=== PATIENT | female | born 1945 | race Caucasian/White ===

== ENCOUNTER 2018-01-07 08:29 | Observation (INO) | payer MEDICARE, OTHER ==
[2018-01-07 09:07] LABS: #Lymphocytes 1.2 thou/uL (1.20-3.40); #Monocytes 0.2 thou/uL (0.11-0.59); #Neutrophils 1.7 thou/uL (1.40-6.50); %Basophils 0.4 % (0.0-1.0); %Eosinophils 1.4 % (0.0-10.0); %Lymphocytes 36.5 % (21.0-51.0); %Monocytes 7.7 % (0.0-10.0); %Neutrophils 54.1 % (42.0-75.0); Hemoglobin 13.9 g/dL (12.0-16.0); Mean Corpuscular HGB CONC 32.7 g/dL (32.0-36.0); Mean Corpuscular Hemoglobin 27.9 pg (27.0-31.0); Mean Corpuscular Volume 85.4 fL (78.0-98.0); Mean Platelet Volume 8.2 fL (7.4-10.4); Platelet Count 190 thou/uL (130-400); Red Blood Cell (RBC) Count 4.99 mill/uL (4.20-5.40); White Blood Cell (WBC) Count 3.2 thou/uL (4.8-10.8)
[2018-01-07 09:29] LABS: ALT (SGPT) 26 U/L (8-55); AST (SGOT) 27 U/L (5-34); Albumin 4.2 g/dL (3.4-4.8); Alkaline Phosphatase 73 U/L (40-150); Anion Gap 12 mmol/L (10-20); BUN (Urea Nitrogen) 7 mg/dL (9.8-20.1); Bilirubin, Total 0.5 mg/dL (0.2-1.2); CK (CPK) 107 U/L (29-168); Calc. Creatinine Clearance 0 mL/min (70-130); Calcium 9.1 mg/dL (7.8-10.44); Carbon Dioxide 25 mmol/L (23-31); Chloride 107 mmol/L (98-107); Estimated GFR-MDRD 63; Globulin 2.9 g/dL (2.4-3.5); Glucose 134 mg/dL (83-110); Potassium 3.2 mmol/L (3.5-5.1); Protein, Total 7.1 g/dL (6.0-8.3); Sodium 141 mmol/L (136-145)
[2018-01-07 09:33] LABS: CKMB 2.3 ng/mL (0-6.6); Troponin I Less than 0.010 ng/mL (< 0.028)
[2018-01-07] MEDS ORDERED: Potassium Chloride 20 MEQ TAB ONE (09:45)
[2018-01-07] MEDS ORDERED: Enoxaparin Sodium 80 MG/0.8 ML SYRINGE ONE (09:50)
--- NOTE | 2018-01-07 11:23 | RAD ---
CHEST 1 VIEW: HISTORY: Atrial flutter. Chest pain. COMPARISON: Radiograph of 04/02/2015. FINDINGS: Heart size is mildly enlarged. Multiple midline median sternotomy wires. No pneumothorax or effusion. Mild S-shaped scoliosis of thoracolumbar spine. IMPRESSION: No significant change. Chronic findings. POS: ZEYAD
[2018-01-07] MEDS ORDERED: Senokot S 8.6-50 MG TAB PO PRN (11:48)
[2018-01-07] MEDS ORDERED: Acetaminophen 325 MG TAB PO PRN (11:48)
[2018-01-07] MEDS ORDERED: HYDROcodone/Acetaminophen 5/325 mg Tablet PO PRN (11:49)
[2018-01-07] MEDS ORDERED: Potassium Chloride 20 MEQ TAB PO SCH (12:00)
[2018-01-07 13:20] LABS: Troponin I 0.024 ng/mL (< 0.028)
--- NOTE | 2018-01-07 14:14 | HP ---
CHIEF COMPLAINT: Palpitations. HISTORY OF PRESENT ILLNESS: Patient is a very pleasant 72-year-old female with past medical history of hypertension, hyperlipidemia and hypothyroidism, who presents to the hospital with complaints of p alpitations x1 day. The patient stated that she woke up this morning around 3:30 a.m., felt very anx ious at this time. She watched some TV, walked around and kind of drifted off to sleep. The patient stated that she woke up, felt her heart was beating very, very fast, which concerned her, so she cam e into the ER for further evaluation. The patient states that she has had a little run of atrial fib rillation and her securities and real estate director, Dr. Oh has told her that if this happens again to come into the ER for further evaluation. Patient by the EMS, was given 70.5 mg of Cardizem which decreased her he art rate from 140-110. The patient normally takes 2 baby aspirins a day. She denies any chest pain or chest tightness. However, she states that her when she had her bypasses done, she did not have ch est pain, but she had jaw pain which she did have some off it while she was in EMS. Currently, she d enies any jaw pain or chest pain or shortness of breath. PAST MEDICAL HISTORY: 1. As I mentioned earlier, she has a history of hypertension. 2. Hyperlipidemia. 3. Hypothyroidism. 4. Coronary artery disease. PAST SURGICAL HISTORY: She has had a bypass x2. Also, has a history of tonsillectomy and cataract s urgeries. SOCIAL HISTORY: She denies any alcohol use, drug use or smoking. ALLERGIES: She is allergic to SORBITOL and LATEX. MEDICATIONS: As of the following; she takes 81 mg aspirins daily. She takes 12.5 mg of Toprol-XL da kiran. She takes 50 mcg of levothyroxine daily and 10 mg of rosuvastatin daily. FAMILY HISTORY: Father had bypass at the age of 60. She does have a history of early heart disease in her family. REVIEW OF SYSTEMS: All negative except for the ones mentioned above in the HPI. PHYSICAL EXAMINATION: VITAL SIGNS: As of the following, her temperature is 98.1, heart rate is 51, oxygen is 90% on room a ir, blood pressure is 144/64. GENERAL: She is awake, alert, oriented x3, does not appear in distress. CARDIOVASCULAR: S1, S2 present, regular. No murmurs heard. LUNGS: Clear to auscultation. No rhonchi or wheezes noted. ABDOMEN: Soft, nontender. Bowel sounds are present x2. EXTREMITIES: No edema. Pedal pulses are present x2. NEUROLOGIC: Neurological arango, no focal deficits noted. SKIN: No cuts, bruises or lesions noted. LABORATORY DATA AND IMAGING DATA: Laboratory results are as of the following: WBC of 3.2, hemoglobi n of 13.9, hematocrit 42.6, platelets of 190. Chemistry: Sodium 141, potassium of 3.2, BUN of 7, cr eatinine 0.88. Troponin x2 were negative. TSH was 2.26. Her EKG just indicated initially atrial fi brillation. Second one indicated sinus rhythm. She did have a chest x-ray which indicated no signif icant changes. ASSESSMENT AND PLAN: The patient is a very pleasant 72-year-old female who presents to the hospital with complaints of some palpitations. 1. Atrial fibrillation with rapid ventricular response. We will admit the patient to do tele. We w ill consult Cardiology. Patient takes only 2 baby aspirins a day. Based on the CHADS-VASc score, he r CHADS-VASc score is 372. She is a female and she has a history of hypertension. We will start the patient on Lovenox for now. I did speak to her about possibly switching it over to Eliquis or Xarel to. We will also order echocardiogram and continue to monitor. 2. Hypertension. We continue her home medications. 3. Hypothyroidism. We will continue her home medications. 4. Deep venous thrombosis prophylaxis. The patient is already on Lovenox. We will continue that.
[2018-01-07 14:56] VITALS: BMI 24.3
[2018-01-07 15:28] LABS: Troponin I 0.031 ng/mL (< 0.028)
[2018-01-07] MEDS: Dronedarone HCl 400 MG TAB PO SCH (18:33)
--- NOTE | 2018-01-07 19:44 | CON ---
DATE OF CONSULTATION: 01/07/2018 INDICATION FOR CONSULTATION: A 72-year-old female with an episode of atrial fibrillation. HISTORY OF PRESENT ILLNESS: This is a very pleasant 72-year-old female who has had bypass surgery in the past in 2003 and then repeat bypass surgery in 2014. She has had a history of one episode of at rial fibrillation in the past and was told that should she have further episode, she should present t o the emergency room. She did not feel well yesterday evening and then noticed that she had felt wor se and asked her daughter to take to the emergency room. 911 was called and she was found to have at rial fibrillation with rapid ventricular response. She was given IV diltiazem and converted back to sinus rhythm. Actually, she did not convert right away. When she arrived in the emergency room, the EKG still showed atrial fibrillation with a well-controlled ventricular response and what appeared t o be an incomplete right bundle branch block. At this time, she has since converted back to sinus rh ythm, but continues to have an incomplete right bundle branch block. She did not have any chest pain or shortness of breath. She did complain of some jaw discomfort, which she has had in the past prio r to undergoing her repeat bypass surgery. At this time, she is very comfortable and denies any comp laints. Her cardiac enzymes are negative for any evidence of myocardial infarction. PAST MEDICAL HISTORY: Significant for the bypass surgery in 2003 with a RASCON to the left anterior de scending artery and saphenous vein graft, I believe, to the distal right coronary artery. At the ellen e of the repeat bypass surgery or cardiac catheterization in 2014, she had an occlusion on both the L MEGHANN as well as the right coronary artery graft. There was some filling of the distal right coronary retrograde from the left system. Redo bypass surgery in 2015 was with a saphenous vein graft to the left anterior descending artery and also to the obtuse marginal branch of the left circumflex. These are very small vessels apparently, 2 to 2.25 mm in diameter. PAST SURGICAL HISTORY: She has had a tonsillectomy, cataract surgery. She has had dental implants. SOCIAL HISTORY: She has children who are alive and well. There is no alcohol or tobacco abuse. FAMILY HISTORY: Positive for coronary artery disease. MEDICATIONS PRIOR TO ADMISSION: Included CoQ10, levothyroxine, aspirin, Crestor, and Toprol-XL. ALLERGIES: She is allergic to SORBITOL and LATEX. REVIEW OF SYSTEMS: Twelve-point review of systems, she complains of some leg cramps and actually the Crestor had been decreased due to the lower extremity cramping. Otherwise, 12-point review of syste ms is unremarkable. PHYSICAL EXAMINATION: GENERAL: Reveals a very pleasant, well-developed, well-nourished female who is in no acute distress. VITAL SIGNS: Blood pressure is 118/69, earlier was 144/64; heart rate is in the 40s-50s and shows a sinus rhythm with an incomplete right bundle branch block; temperature is afebrile; O2 saturation is 98%. HEENT: Shows the head to be normocephalic and atraumatic. NECK: Carotid pulses are present. There were no bruits. There is no JVD. The thyroid is not enlar ged. I cannot palpate the thyroid. CHEST: Clear to auscultation without rales, rhonchi, or wheezing. CARDIOVASCULAR: Reveals a regular rhythm at this time, somewhat bradycardiac. She does have a very soft systolic murmur of the aortic area. Otherwise, I did not hear any significant rubs or bruits. I did not feel a heave. ABDOMEN: Soft and nontender. She does have a well-healed midline surgical incision of the chest are a after previous bypass surgery. EXTREMITIES: Showed no clubbing, cyanosis, or edema. Pedal pulses are present. NEUROLOGIC: She appears to be fully intact with normal strength and normal tone. SKIN: Warm and dry. At this time, her EKG shows a normal sinus rhythm with incomplete right bundle branch block, sinus br adycardia. Earlier, the EKG did indicate atrial fibrillation. IMPRESSION: 1. Recent onset of a second episode of atrial fibrillation with a rapid ventricular response, which was well controlled by giving IV diltiazem. This is the second episode for the patient and most like ly she will need to undergo an echocardiogram. She does not remember the last time she had an echoca rdiogram. This will be for evaluation of the left ventricular systolic function as well as the left atrial size. We would suggest that she start on oral anticoagulation as well as Lovenox. I would ag ree with Lovenox at this time. She will also need to undergo stress testing if she has not had a rec ent stress test to rule out evidence for underlying ischemia as a possible etiology of the atrial fib rillation and she did have some jaw discomfort associated with the atrial fibrillation, but she did h ave a rapid ventricular response. It may be advantageous to start the patient on Multaq to see [facility] er or not she will maintain sinus rhythm. 2. History of coronary artery disease. This appears to be relatively stable, but again will need to undergo some type of stress testing to rule out evidence for underlying ischemia as a possible etiol ogy of the atrial fibrillation. 3. Hypertension. This is under good control with her present medications. We would continue this. 4. History of hypercholesterolemia. We would continue her medications with Crestor. We would be mo re than happy to continue to follow the patient with you. Dr. Oh will see the patient on Monda y unless she is discharged tomorrow if she remains stable. She could be discharged to home and could follow up as an outpatient, but we will first need to evaluate the echocardiogram. She could have s tress testing as an outpatient and we could medically follow her for the atrial fibrillation also.
[2018-01-07] MEDS: Enoxaparin Sodium 80 MG/0.8 ML SYRINGE SC SCH (20:50)
[2018-01-07] MEDS: Levothyroxine Sodium 50 MCG TAB PO SCH (20:51)
[2018-01-07] MEDS: Famotidine 20 MG TAB PO SCH (20:51)
[2018-01-07] MEDS: Rosuvastatin 10 MG TAB PO SCH (20:52)
[2018-01-08 07:32] LABS: #Eosinphils 0.1 thou/uL (0.0-0.7); #Lymphocytes 1.6 thou/uL (1.20-3.40); #Monocytes 0.3 thou/uL (0.11-0.59); #Neutrophils 1.4 thou/uL (1.40-6.50); %Basophils 0.8 % (0.0-1.0); %Eosinophils 1.5 % (0.0-10.0); %Lymphocytes 47.9 % (21.0-51.0); %Monocytes 8.7 % (0.0-10.0); %Neutrophils 41.1 % (42.0-75.0); Hemoglobin 12.1 g/dL (12.0-16.0); Mean Corpuscular HGB CONC 32.7 g/dL (32.0-36.0); Mean Corpuscular Hemoglobin 27.7 pg (27.0-31.0); Mean Corpuscular Volume 84.8 fL (78.0-98.0); Mean Platelet Volume 8.4 fL (7.4-10.4); Platelet Count 175 thou/uL (130-400); Red Blood Cell (RBC) Count 4.37 mill/uL (4.20-5.40); White Blood Cell (WBC) Count 3.3 thou/uL (4.8-10.8)
[2018-01-08 08:04] LABS: Anion Gap 10 mmol/L (10-20); BUN (Urea Nitrogen) 8 mg/dL (9.8-20.1); Calc. Creatinine Clearance 66 mL/min (70-130); Calcium 8.8 mg/dL (7.8-10.44); Carbon Dioxide 25 mmol/L (23-31); Chloride 108 mmol/L (98-107); Estimated GFR-MDRD 68; Glucose 82 mg/dL (83-110); Potassium 3.8 mmol/L (3.5-5.1); Sodium 139 mmol/L (136-145)
[2018-01-08] MEDS: Dronedarone HCl 400 MG TAB PO SCH ×2 (10:08→19:02)
[2018-01-08] MEDS: Aspirin 81 mg Enteric Coated Tablet PO SCH (10:08)
[2018-01-08] MEDS: Famotidine 20 MG TAB PO SCH ×2 (10:08→21:41)
[2018-01-08] MEDS: Enoxaparin Sodium 80 MG/0.8 ML SYRINGE SC SCH ×2 (10:10→21:40)
--- NOTE | 2018-01-08 11:25 | PDOC.CTH ---
<Delia Bunch - Last Filed: 01/08/18 14:49> Cardiology Progress Note - Subjective Stress test as outpt. - Objective Vital Signs Temp Pulse Resp BP Pulse Ox 01/08/18 07:40 97.6 F 46 L 18 132/64 97 01/08/18 04:55 98.2 F 56 L 16 112/54 L 95 01/08/18 00:05 98.0 F 55 L 16 118/57 L 96 Weight 151 lb 01/07/18 01/08/18 01/09/18 06:59 06:59 06:59 Intake Total 730 Output Total 900 Balance -170 - Physical Examination General/Neuro: alert & oriented x3 Neck: no JVD present Lungs: CTA Heart: RRR Abdomen: soft Extremities: other: (No edema) - Telemetry Telemetry Rhythm: SB 45-50s - Labs Result Diagrams: 01/08/18 06:37 01/08/18 06:37 Troponin/CKMB CK-MB (CK-2) 2.3 ng/mL (0-6.6) 01/07/18 08:53 Troponin I 0.031 ng/mL (< 0.028) H 01/07/18 14:50 - Assessment/Plan 1. New-on set Afib - converted back to SR with Cardizem. On Multaq and Metoprolol, which was decreased from 25mg to 12.5mg qd. Echo was taking this AM and the result is pending at this moment. Stress test as outpt. 2. CAD with Hx of CABG in 2003 and 2014 - stable; on BBlocker, Crestor, and ASA 3. HTN - stable 4. Hyperlipidemia - on Statin MAR reviewed * Stress test as outpt. <Addendum> * Hold Metoprolol until her HR >50 sustains and/or seen by Dr Oh tomorrow. Review of Systems - Review of Systems Constitutional: reports: no symptoms reported EENTM: reports: no symptoms reported Respiratory: reports: no symptoms reported Cardiac (ROS): reports: no symptoms reported ABD/GI: reports: no symptoms reported : reports: no symptoms reported Musculoskeletal: reports: no symptoms reported <Chester Vegas - Last Filed: 01/08/18 22:25> Cardiology Progress Note - Objective Vital Signs Temp Pulse Resp BP BP Pulse Ox 01/08/18 20:00 97.5 F L 48 L 16 149/67 H 98 01/08/18 15:46 97.5 F L 51 L 16 136/73 97 01/08/18 11:17 98.3 F 48 L 16 117/59 L 95 Weight 151 lb 01/07/18 01/08/18 01/09/18 06:59 06:59 06:59 Intake Total 730 350 Output Total 900 400 Balance -170 -50 - Labs Result Diagrams: 01/08/18 06:37 01/08/18 06:37 Troponin/CKMB CK-MB (CK-2) 2.3 ng/mL (0-6.6) 01/07/18 08:53 Troponin I 0.031 ng/mL (< 0.028) H 01/07/18 14:50 - Assessment/Plan Pt.seen and eval.by me.I agreewith the A/P by the [employer]. Chest clear.RRR.
--- NOTE | 2018-01-08 16:55 | PDOC.PN ---
- Subjective Encounter Start Date: 01/08/18 (f/u a fib) Encounter Start Time: 16:53 Subjective: pt without complaints, reports she walked without difficulty -: denies any chest pain, difficulty breathing, lightheadedness - Objective Resuscitation Status: Resuscitation Status FULL:Full Resuscitation Vital Signs & Weight: Vital Signs (12 hours) Temp Pulse Resp BP Pulse Ox 01/08/18 15:46 97.5 F L 51 L 16 136/73 97 01/08/18 11:17 98.3 F 48 L 16 117/59 L 95 01/08/18 07:40 97.6 F 46 L 18 132/64 97 01/08/18 04:55 98.2 F 56 L 16 112/54 L 95 Weight Weight 151 lb I&O: 01/07/18 01/08/18 01/09/18 06:59 06:59 06:59 Intake Total 730 Output Total 900 Balance -170 Result Diagrams: 01/08/18 06:37 01/08/18 06:37 EKG Reviewed by me: Yes (tele -= sinus 40's-50's) Phys Exam - Physical Examination Constitutional: NAD Respiratory: no wheezing, no rales, no rhonchi, clear to auscultation bilateral Cardiovascular: RRR, no significant murmur Gastrointestinal: soft, non-tender, no distention, positive bowel sounds Musculoskeletal: no edema, pulses present Neurological: non-focal, moves all 4 limbs Psychiatric: normal affect Skin: no rash Dx/Plan (1) Paroxysmal atrial fibrillation Code(s): I48.0 - PAROXYSMAL ATRIAL FIBRILLATION Status: Acute (2) Sinus bradycardia Code(s): R00.1 - BRADYCARDIA, UNSPECIFIED Status: Chronic (3) Dyslipidemia Code(s): E78.5 - HYPERLIPIDEMIA, UNSPECIFIED Status: Chronic (4) Hypothyroidism Code(s): E03.9 - HYPOTHYROIDISM, UNSPECIFIED Status: Chronic Qualifiers: Hypothyroidism type: unspecified Qualified Code(s): E03.9 - Hypothyroidism , unspecified - Plan * Appreciate cardiology consult * pt started on multaq * hold toprol - await Dr. Adriano brumfield tomorrow * on full dose lovenox - will need transition to oral medication * on low dose aspirin * continue home meds of statin, levothyroxine. * * dvt prophy - fully anticoagulated * gi prophy - not indicated, taking PO * code status - full * * reviewed plan of care with patient, , no questions or further needs at end of eval * pt remains at high risk in current condition *
[2018-01-08] MEDS: Levothyroxine Sodium 50 MCG TAB PO SCH (21:40)
[2018-01-08] MEDS: Rosuvastatin 10 MG TAB PO SCH (21:40)
[2018-01-09] MEDS: Famotidine 20 MG TAB PO SCH (08:44)
[2018-01-09] MEDS: Dronedarone HCl 400 MG TAB PO SCH (08:44)
[2018-01-09] MEDS: Aspirin 81 mg Enteric Coated Tablet PO SCH (08:46)
[2018-01-09] MEDS: Enoxaparin Sodium 80 MG/0.8 ML SYRINGE SC SCH (08:46)
[2018-01-09 12:23] VITALS: BP 121/66; TEMP 97.9
--- NOTE | 2018-01-09 13:09 | DIS ---
DATE OF ADMISSION: 01/08/2018 DATE OF DISCHARGE: 01/09/2018 PRIMARY CARE PHYSICIAN: Thor Rosario M.D. PRIMARY USED CAR RENOVATOR: Alirio Oh M.D. DISCHARGE DIAGNOSES: 1. New onset paroxysmal atrial fibrillation. 2. History of coronary artery disease. 3. Status post coronary artery bypass grafting. 4. Sinus bradycardia. 5. Hyperlipidemia. 6. Hypothyroidism. CONSULTATIONS: Cardiology, Dr. Fab Vegas. PROCEDURES: None. HISTORY AND PHYSICAL: Ms. Green is a 72-year-old female with a known history of coronary artery disea se followed by Dr. Oh, who presented to the emergency department for evaluation on the day of a dmission with chief complaint of palpitations. Workup in the ER showed normal cardiac enzymes and fo r the patient to be in atrial fibrillation, which was a new finding. We were subsequently called for admission. HOSPITAL COURSE: The patient was seen and examined by Dr. Bashir, placed in an observation. Cardiol rajiv was consulted. Serial cardiac biomarkers were obtained and patient was monitored. Overnight 01/08/2018 to 01/09/2018, patient converted back to sinus rhythm on a Cardizem-CD. She was seen by Cardiology and transitioned to Multaq 400 b.i.d. She was continued on aspirin and Lovenox i nitially and the discussion on Suraj Serranorelto to be left up to Dr. Oh when she sees him as an outpatient in a week or so. The patient was doing well in the morning. She was back in sinus rhythm. Even on her beta fahad, her heart rate remained in the high 50s to low 60s. She is asymptomatic and stable for discharge wit h outpatient followup. PHYSICAL EXAMINATION: The patient was seen and examined on the day of discharge. Discharge plan and disposition was discussed with the patient [id number] at the bedside. DISCHARGE MEDICATIONS: NEW MEDICATIONS: Multaq 400 mg p.o. b.i.d. Prescription sent. HOME MEDICINES: To continue. Please see discharge medication reconciliation sheet. FOLLOWUP APPOINTMENTS: 1. Primary care physician in [address] Oh in 1-2 weeks. DISCHARGE CONDITION: Stable. DISPOSITION: Discharged home via private vehicle. DISCHARGE ACTIVITY: Per cardiopulmonary limits. DISCHARGE DIET: Heart healthy recommended.
== END 2018-01-09 13:15 | disposition home or self-care (01) ==
LOC: ERS 08:29 → 2SW 11:46
PROVIDERS: ADMIT Internal Medicine; ATTEND Internal Medicine
DX: I48.0 Paroxysmal atrial fibrillation (principal); I25.10 Atherosclerotic heart disease of native coronary artery without angina pectoris; E78.5 Hyperlipidemia, unspecified; E03.9 Hypothyroidism, unspecified; I10 Essential (primary) hypertension; E78.00 Pure hypercholesterolemia, unspecified; Z79.82 Long term (current) use of aspirin; Z79.899 Other long term (current) drug therapy; Z88.8 Allergy status to other drugs, medicaments and biological substances; Z91.040 Latex allergy status; Z91.048 Other nonmedicinal substance allergy status; Z95.1 Presence of aortocoronary bypass graft
CPT/HCPCS: 71045; 80048; 82550; 82553; 84484 ×2; 85025; 93005; 93306; 94760; 96372 ×4; 99285; G0378 ×2; 36415; 80053; 84443; J1650

== ENCOUNTER 2018-01-29 23:35 | Observation (INO) | payer MEDICARE ==
[2018-01-30 00:14] LABS: #Lymphocytes 1.6 thou/uL (1.20-3.40); #Monocytes 0.4 thou/uL (0.11-0.59); #Neutrophils 3.2 thou/uL (1.40-6.50); %Basophils 0.1 % (0.0-1.0); %Eosinophils 0.7 % (0.0-10.0); %Monocytes 8.4 % (0.0-10.0); %Neutrophils 60.7 % (42.0-75.0); Hemoglobin 14.6 g/dL (12.0-16.0); Mean Corpuscular HGB CONC 33.2 g/dL (32.0-36.0); Mean Corpuscular Hemoglobin 28.1 pg (27.0-31.0); Mean Corpuscular Volume 84.6 fL (78.0-98.0); Platelet Count 226 thou/uL (130-400); RBC Distribution Width 12.1 % (11.5-14.5); White Blood Cell (WBC) Count 5.3 thou/uL (4.8-10.8)
[2018-01-30 00:21] LABS: INR-International Normal Ratio 1.1; Prothrombin Time 14.5 SEC (12.0-14.7)
[2018-01-30] MEDS ORDERED: Nitroglycerin 2% Ointment 1 INCH/1 GM Packet ONE (00:39)
[2018-01-30 00:40] LABS: ALT (SGPT) 27 U/L (8-55); AST (SGOT) 25 U/L (5-34); Albumin 4.6 g/dL (3.4-4.8); Alkaline Phosphatase 80 U/L (40-150); Anion Gap 16 mmol/L (10-20); BUN (Urea Nitrogen) 9 mg/dL (9.8-20.1); Bilirubin, Total 0.4 mg/dL (0.2-1.2); CK (CPK) 78 U/L (29-168); Calc. Creatinine Clearance 0 mL/min (70-130); Calcium 9.9 mg/dL (7.8-10.44); Carbon Dioxide 25 mmol/L (23-31); Chloride 103 mmol/L (98-107); Estimated GFR-MDRD 59; Globulin 3.1 g/dL (2.4-3.5); Glucose 105 mg/dL (83-110); Lipase 37 U/L (8-78); Potassium 3.6 mmol/L (3.5-5.1); Protein, Total 7.7 g/dL (6.0-8.3); Sodium 140 mmol/L (136-145)
[2018-01-30 01:01] LABS: CKMB 1.6 ng/mL (0-6.6)
[2018-01-30 03:29] LABS: Troponin I 0.089 ng/mL (< 0.028)
[2018-01-30 04:15] VITALS: BMI 23.9
[2018-01-30] MEDS ORDERED: Ondansetron ODT 4 MG TAB PO PRN (04:57)
[2018-01-30] MEDS ORDERED: Ondansetron PF 4 MG/2 ML Vial IVP PRN (04:57)
[2018-01-30] MEDS ORDERED: Guaifenesin DM 100-10/5 ML UDCUP PO PRN (04:57)
[2018-01-30] MEDS ORDERED: Zolpidem Tartrate 5 MG TAB PO PRN (04:57)
[2018-01-30] MEDS ORDERED: Calcium Carbonate 500 MG ChewTAB PO PRN (04:57)
[2018-01-30] MEDS ORDERED: Nitroglycerin 0.4 MG TAB (25 Tab Bottle) PO PRN (04:57)
[2018-01-30] MEDS ORDERED: Acetaminophen 650 MG Suppository PR PRN (04:57)
[2018-01-30] MEDS: Levothyroxine Sodium 50 MCG TAB PO SCH (06:09)
[2018-01-30] MEDS: Nitroglycerin 2% Ointment 1 INCH/1 GM Packet TOP SCH ×3 (06:10→20:47)
[2018-01-30 06:50] LABS: Troponin I 0.129 ng/mL (< 0.028)
--- NOTE | 2018-01-30 07:34 | RAD ---
CHEST 1 VIEW: HISTORY: Chest pain. COMPARISON: Radiograph 01/07/2018. FINDINGS: Lungs are clear but hyperinflated. Heart size is mildly enlarged. No pneumothorax. No effusion. C hronic interstitial markings in the lung bases. There is a what appears to be a wedge compression fracture of the upper lumbar spine incompletely mesha luated on this examination. IMPRESSION: Possibly a new compression deformity of the upper lumbar spine incompletely evaluated on this examina tion. Dedicated lumbar spine radiographs recommended. POS: JORDAN
[2018-01-30] MEDS ORDERED: Apixaban 5 MG TAB PO SCH (09:00)
[2018-01-30] MEDS ORDERED: Famotidine/PF 20 mg/2ml Vial SLOW IVP SCH (09:00)
[2018-01-30] MEDS ORDERED: Aspirin 81 mg Enteric Coated Tablet PO SCH (09:00)
[2018-01-30] MEDS: Acetaminophen 325 MG TAB PO PRN ×2 (10:24→19:23)
[2018-01-30] MEDS: Famotidine 20 MG TAB PO SCH ×2 (10:24→20:44)
[2018-01-30] MEDS: Ubidecarenone 50 MG CAP PO SCH (10:25)
[2018-01-30] MEDS: Amiodarone 200 MG TAB PO SCH ×2 (10:26→20:44)
[2018-01-30] MEDS: Rosuvastatin 10 MG TAB PO SCH (10:26)
[2018-01-30 11:27] LABS: Troponin I 0.109 ng/mL (< 0.028)
[2018-01-30 17:27] LABS: Troponin I 0.061 ng/mL (< 0.028)
--- NOTE | 2018-01-31 00:15 | HP ---
CHIEF COMPLAINT: Ongoing chest discomfort and pain that is radiating to the left arm and the ears. HISTORY OF PRESENTING ILLNESS: 72 year old female presented to hospital 2 weeks ago with new onset Afib, she was then treated with Multaq and she converted to SR. Multaq subsequently changed to Amiodarone due to allergic reaction to Multaq. The patient is now is presenting with chest discomfort radiating to the left side of her arms and also the neck. The patient does not complain of any nausea, vomiting, or headache. On arrival in the ER, the patient's blood pressure was high and was treated with nitro patch. PAST MEDICAL HISTORY: Significant for coronary artery disease and CABG x2. New diagnosis of atrial fibrillation, history of hypothyroidism, history of hyperlipidemia, and hypertension. PAST SURGICAL HISTORY: Dental implant, bilateral cataract surgery with lens implant. Surgical history significant for CABG x2. Surgical history significant for tonsillectomy. PSYCHIATRIC HISTORY: No previous psychiatric history. SOCIAL HISTORY: The patient drinks socially. Denies any drug or alcohol or smoking. REVIEW OF SYMPTOMS: CONSTITUTIONAL: Negative for any chills or fever. HEENT: Negative for any headache or syncope, no complaints of any eye pain or discharge, no complaints of any ear pain or discharge, no complaints of sore throat. CARDIOVASCULAR: Please see HPI. RESPIRATORY: Negative for any history of shortness of breath or cough. GI: Negative for any complaints of nausea, vomiting, diarrhea, or constipation. MUSCULOSKELETAL: Denies any swelling or pain in the lower extremities. SKIN: Denies any rashes or redness. NEUROLOGIC: Denies any neurological deficits or complaints. PHYSICAL EXAMINATION: VITAL SIGNS: Blood pressure 138/74, pulse 60, respiratory rate 18, O2 saturation around 97% on room air, and the patient is in sinus rhythm. CONSTITUTIONAL: The patient does not look to be in any distress. HEENT: Normocephalic and atraumatic head. Conjunctivae and eyelids are within normal limits. Pupils are round and reactive to light. External ears and canal along with tympanic membrane are within normal limits. No discharge seen. Nasal septum is centrally placed. No deviation is noted. Trachea is centrally placed with full range of motions of the neck. No lymph nodes are felt. RESPIRATORY: Good air entry into both lungs. No wheezes or rales. CARDIOVASCULAR: Regular rate and rhythm. No gallops or murmurs are heard. MUSCULOSKELETAL: No pedal edema. No swelling. SKIN: No rashes are noted. GI: Abdomen is soft. No masses. No distention. No guarding. ASSESSMENT AND PLAN: 1. Chest discomfort. Follow the serial troponins. Troponin is mildly elevated and in indeterminate range. 2. Atrial fibrillation. Continue home amiodarone. The patient is here in sinus rhythm. Also, continue the Eliquis that she is on at home. 3. Hypertension and CAD. Continue home medications. 4. Hyperlipidemia. Continue home medications. Dr. Oh has been informed of the patient's admission and appreciate his recommendations. Job ID: [id number] MTDD
[2018-01-31] MEDS: Levothyroxine Sodium 50 MCG TAB PO SCH (05:20)
[2018-01-31 05:49] LABS: #Eosinphils 0.1 thou/uL (0.0-0.7); #Lymphocytes 1.3 thou/uL (1.20-3.40); #Monocytes 0.3 thou/uL (0.11-0.59); #Neutrophils 1.6 thou/uL (1.40-6.50); %Basophils 0.6 % (0.0-1.0); %Eosinophils 1.9 % (0.0-10.0); %Lymphocytes 40.5 % (21.0-51.0); %Monocytes 9.1 % (0.0-10.0); %Neutrophils 47.9 % (42.0-75.0); Hemoglobin 12.7 g/dL (12.0-16.0); Mean Corpuscular HGB CONC 32.4 g/dL (32.0-36.0); Mean Corpuscular Hemoglobin 27.5 pg (27.0-31.0); Mean Corpuscular Volume 84.8 fL (78.0-98.0); Platelet Count 186 thou/uL (130-400); RBC Distribution Width 12.1 % (11.5-14.5); Red Blood Cell (RBC) Count 4.63 mill/uL (4.20-5.40); White Blood Cell (WBC) Count 3.3 thou/uL (4.8-10.8)
[2018-01-31] MEDS: Nitroglycerin 2% Ointment 1 INCH/1 GM Packet TOP SCH ×2 (06:00→14:16)
[2018-01-31 06:07] LABS: Anion Gap 13 mmol/L (10-20); BUN (Urea Nitrogen) 8 mg/dL (9.8-20.1); Calc. Creatinine Clearance 59 mL/min (70-130); Carbon Dioxide 24 mmol/L (23-31); Chloride 107 mmol/L (98-107); Estimated GFR-MDRD 60; Glucose 88 mg/dL (83-110); Sodium 140 mmol/L (136-145)
--- NOTE | 2018-01-31 07:41 | CON ---
DATE OF CONSULTATION: 01/30/2018 HISTORY OF PRESENT ILLNESS: Cami Green is a 72-year-old white female, who was initially evaluated in November 2003; for two to 3 weeks prior to that, she developed chest discomfort that she describes as a pressure, that radiated to both jaws, associated with shortness of breath and diaphoresis. She had no nausea or vomiting. All her episodes appeared to be related to some form of exertion, like taking a shower, hanging the shower curtain, or walking. These would respond to rest with resolution in 3-5 minutes. She denied any resting pain or nocturnal episodes. She underwent stress echo test in the office, exercised for 4 minutes and she developed [address]-segment depression in II, III, and aVF. She had the same type of chest discomfort associated with that. Echo revealed inferior and lateral wall ischemia. She underwent cardiac catheterization in December 2003 and had mild inferobasal hypokinesis with ejection fraction of 50% to 55%. The left main was normal. The LAD had a 30% to 40% proximal stenosis and an 80% mid stenosis. The circumflex was normal. The right coronary artery had 50% and 60% mid stenosis and was totally occluded in its distal portion. The distal vessel filled retrograde from the circumflex and the LAD septals. She then underwent CABG x2 by Dr. Smalls with RASCON to LAD, as well as vein graft to the right posterior descending. Postoperative course was unremarkable. Ms. Green did well after that until she presented to her usual office followup on June 19, 2014, stated that she had sharp pains in her chest with doing a yoga move, this only lasted for a few seconds. She also noted that when she reached with her left arm, she would again have that discomfort. With those symptoms, she underwent Cardiolite treadmill testing. During treadmill, she became lightheaded with 1-[address]-segment depression in multiple leads. She also dropped her blood pressure from 154/84 to 130/74. The test was then converted to a Lexiscan Cardiolite, which revealed no evidence of ischemia. However, with her findings on treadmill, it was recommended that she undergo cardiac catheterization. Risks of catheterization were discussed. She agreed to proceed. Left ventriculogram revealed mild inferobasal hypokinesis with ejection fraction of 55% to 60%. There was a 60% left main, 50% proximal LAD, 70% mid LAD. There was an 80% proximal circumflex at the left main. The right coronary artery had a 60% mid stenosis and it was totally occluded distally. The distal vessel filled retrograde from the left. Bypass grafts revealed the RASCNO to the LAD to be occluded. Saphenous vein graft to the right coronary artery also was occluded. She then underwent redo CABG x2, saphenous vein graft to the LAD and to the obtuse marginal. The radial was harvested, but it was felt to be too small to be used. Since that time, she has done relatively well until January 07. She felt her heart beating very rapidly and went to the emergency room and was in atrial fibrillation. She was given intravenous diltiazem, converted back to sinus rhythm. She did complain of some jaw discomfort at that time, which in the past prior to undergoing repeat bypass surgery was one of her symptoms. She was then placed on Multaq 400 b.i.d. and discharged. Three to 4 days after discharge, she began to have problems with increasing peripheral edema. She called me on the weekend, I was long chain quiller tender and I told her to discontinue the Multaq. She then came to the office on January 26 and we discussed various options. Echocardiogram prior to discharge from the hospital revealed ejection fraction of 50% to 55% with left atrial enlargement, moderate mitral regurgitation, aortic valvular sclerosis with [id number] tricuspid regurgitation and moderate pulmonic regurgitation. She was placed on Eliquis 5 mg b.i.d. Overall, it was recommended that she start amiodarone 200 mg b.i.d., which she has started as an outpatient. With bradycardia at times, metoprolol 25 ER daily was stopped. Since that time, she has continued to have sharp discomfort in her chest that would last 1 to 2 seconds. She also at times would have some pressure in her throat radiating up to her ear, which is vaguely similar to some of the symptoms she had prior to bypass surgeries. She has remained in sinus rhythm throughout this hospital stay. PAST MEDICAL HISTORY: Hypercholesterolemia. No history of hypertension or diabetes. She has hypothyroidism. MEDICATIONS: 1. Amiodarone 200 mg b.i.d. 2. Eliquis 5 mg b.i.d. 3. Rosuvastatin 10 mg daily. 4. CoQ10 of 100 daily. 5. Aspirin 81 daily. 6. Levothyroxine 50 mcg daily. ALLERGIES: MULTAQ CAUSES LEG SWELLING; SORBITOL AND ADHESIVES. FAMILY HISTORY: Father had CABG. SOCIAL HISTORY: She does not smoke or drink. REVIEW OF SYSTEMS: A 12-point review of systems is otherwise unremarkable. PHYSICAL EXAMINATION: VITAL SIGNS: Blood pressure 151/72, pulse of 54, sinus rhythm on the monitor. HEENT: PERRL. NECK: Supple. CHEST: Clear. CARDIAC EXAMINATION: S1 and S2 normal without any S3, S4, or murmurs. Carotid upstrokes are normal without bruits. ABDOMEN: Normal bowel sounds. EXTREMITIES: Revealed no clubbing, cyanosis, or edema. NEUROLOGIC: Grossly intact. SKIN: Warm and dry. LABORATORY DATA: EKG revealed normal sinus rhythm with right bundle branch block similar to previous EKGs. Cardiac enzymes, troponin I 0.129. Sodium 140, potassium 3.6, chloride 103, carbon dioxide 25, BUN 9, creatinine 0.94, INR 1.1. Hemoglobin 14.6, hematocrit 44.0, white count 5300, platelets 226,000. IMPRESSION: 1. Atypical chest discomfort with sharp pains lasting 1 to 2 seconds. However, at times, she would have throat pressure, which she did have prior to bypass surgery. 2. Paroxysmal atrial fibrillation with an episode 3 weeks ago, which converted with intravenous Cardizem. Currently, she is on amiodarone 200 mg b.i.d. and does have a monitor that she has been wearing at home. 3. Status post 2 coronary artery bypass graftings. 4. History of supraventricular tachycardia lasting 1 to 2 minutes. 5. Positive family history of coronary artery disease. 6. Hyperlipidemia. PLAN: Ms. Green will be continued on her current medications except aspirin will be reduced to 81 mg daily and Eliquis will be held at this time in case the ultimate decision is to have her undergo cardiac catheterization. Tomorrow, she will undergo [facility] Cardiolite testing to further evaluate her symptoms. Job ID: [id number] [facility]
[2018-01-31] MEDS ORDERED: ADENOSINE 60 MG/20 ML VIAL ONE (09:00)
[2018-01-31] MEDS ORDERED: Aspirin 81 mg Enteric Coated Tablet PO SCH (09:00)
[2018-01-31] MEDS: Ubidecarenone 50 MG CAP PO SCH (11:33)
[2018-01-31] MEDS: Rosuvastatin 10 MG TAB PO SCH (11:33)
[2018-01-31] MEDS: Famotidine 20 MG TAB PO SCH (11:33)
[2018-01-31] MEDS: Amiodarone 200 MG TAB PO SCH (11:34)
[2018-01-31 12:10] VITALS: TEMP 97.6
--- NOTE | 2018-01-31 12:36 | NM ---
CARDIAC SPECT: HISTORY: A 72-year-old female with chest pain, coronary artery disease, status post CABG, atrial fibrillation, hypertension, and dyslipidemia. TECHNIQUE: A myocardial perfusion scan was performed using the single isotope one day protocol with technetium 9 9m sestamibi, and 10 millicuries was injected intravenously for the rest exam, followed by 33 millicu elizabeth for the stress study. Pharmacologic stress with adenosine was monitored and interpreted by Dereck sharpe, Nurse Practitioner. FINDINGS: Homogeneous tracer distribution is seen in the myocardial segments on stress and rest images, without fixed or reversible defects. GATED SPECT LVEF: 75% WALL MOTION EXAM: Normal. IMPRESSION: Normal myocardial perfusion scan. POS: JORDAN
--- NOTE | 2018-01-31 14:06 | EKG ---
Test Reason : Blood Pressure : / mmHG Vent. Rate : 063 BPM Atrial Rate : 063 BPM P-R Int : 162 ms QRS Dur : 124 ms QT Int : 472 ms P-R-T Axes : 077 029 001 degrees QTc Int : 483 ms Normal sinus rhythm Right bundle branch block T wave inversion seen on prior EKG Abnormal ECG Confirmed by SOFÍA GUERRERO DO ([id number]), editorial intern KATIE MARTÍNEZ ([id number] on 01/31/2018 2:06:31 PM Referred By: Confirmed By:SOFÍA GUERRERO DO
[2018-01-31 15:56] VITALS: BP 131/63
[2018-01-31] MEDS ORDERED: Apixaban 5 MG TAB PO SCH (21:00)
--- NOTE | 2018-02-01 03:17 | DIS ---
DATE OF ADMISSION: 01/30/2018 DATE OF DISCHARGE: 01/31/2018 FINAL DIAGNOSES: 1. Chest pain, acute coronary syndrome was ruled out. 2. Atrial fibrillation, paroxysmal. 3. Hypertension. 4. Coronary artery disease. 5. Hyperlipidemia. CONSULTANTS: Cardiology Service, Dr. Alirio Oh. HOSPITAL COURSE: The patient is a 72-year-old female who presented to the emergency room with chest discomfort radiating to the left side of her arms and the neck. There was no any nausea, vomiting, or headache. At the time of ER evaluation, her blood pressure was elevated and was treated with nitroglycerin patch. She has a history of coronary artery disease and CABG x2. She just had recently new diagnosis of atrial fibrillation 2 weeks ago, which was converted to sinus rhythm, and she was placed on Multaq, subsequently was changed to amiodarone due to allergic reaction to Multaq. While in the emergency room, her blood pressure was 138/74, pulse was 60, respiratory rate was 18, O2 saturation was 97% on room air. The patient was in sinus rhythm. Troponin was mildly elevated at 0.029. The patient got admitted to the hospital. Her additional two troponin levels were 0.089 and 0.129. Her electrocardiogram, normal sinus rhythm with right bundle branch block, similar to previous EKGs. The patient was observed in the observation unit. She underwent stress test the next day, this was cardiac SPECT, which showed a gated SPECT LVEF of 75%. Wall motion exam was normal, and the final impression was normal myocardial perfusion scan. The patient is doing well. She does not have any discomfort anymore in her chest. Her blood pressure is 131/63, pulse is 50, temperature is 97.6, respiratory rate is 12, and O2 saturation is 95% on room air. She is seen and examined before she is discharged home. ACTIVITIES: As tolerated. DIET: Heart healthy. HOME MEDICATIONS: 1. Amiodarone 200 mg twice a day. 2. Aspirin 2 tablets daily. 3. Coenzyme Q10 100 mg daily. 4. Rosuvastatin 10 mg daily. 5. Levothyroxine 50 mcg daily. 6. Apixaban 5 mg twice a day. FOLLOWUP: She is going to follow up with her primary care physician in 1 week and she will keep her regular appointments with her amusement ride inspector, Dr. Oh. TIME SPENT: The discharge is less than 30 minutes. Job ID: [id number]
== END 2018-01-31 17:59 | disposition home or self-care (01) ==
LOC: ERS 23:35 → 2SW 01-30 03:32
PROVIDERS: ADMIT Internal Medicine; ATTEND Internal Medicine
DX: R07.89 Other chest pain (principal); I48.0 Paroxysmal atrial fibrillation; I10 Essential (primary) hypertension; I25.10 Atherosclerotic heart disease of native coronary artery without angina pectoris; I47.1 Supraventricular tachycardia; I34.0 Nonrheumatic mitral (valve) insufficiency; I35.8 Other nonrheumatic aortic valve disorders; I36.1 Nonrheumatic tricuspid (valve) insufficiency; I37.1 Nonrheumatic pulmonary valve insufficiency; E78.00 Pure hypercholesterolemia, unspecified; E03.9 Hypothyroidism, unspecified; Z90.89 Acquired absence of other organs; Z95.1 Presence of aortocoronary bypass graft; Z96.1 Presence of intraocular lens; Z98.41 Cataract extraction status, right eye; Z98.42 Cataract extraction status, left eye; Z88.8 Allergy status to other drugs, medicaments and biological substances; Z91.09 Other allergy status, other than to drugs and biological substances; Z79.01 Long term (current) use of anticoagulants; Z79.82 Long term (current) use of aspirin; Z79.899 Other long term (current) drug therapy; Z98.890 Other specified postprocedural states
CPT/HCPCS: 71045; 78452; 80048; 80053; 82550; 82553; 83690; 84484 ×2; 85025 ×2; 85610; 93005; 93017; 94760 ×3; 99285; A9500; G0378; 36415; J0153

== ENCOUNTER 2020-04-17 05:26 | Observation (INO) | payer MEDICARE ==
[2020-04-17] MEDS ORDERED: Nitroglycerin 2% Ointment 1 INCH/1 GM Packet ONE (05:41)
[2020-04-17 05:51] LABS: #Basophils 0.1 thou/uL (0.0-0.2); #Eosinphils 0.1 thou/uL (0.0-0.7); #Lymphocytes 1.7 thou/uL (1.20-3.40); #Monocytes 0.5 thou/uL (0.11-0.59); #Neutrophils 1.6 thou/uL (1.40-6.50); %Basophils 1.8 % (0.0-1.0); %Eosinophils 2.1 % (0.0-10.0); %Lymphocytes 43.6 % (21.0-51.0); %Monocytes 11.7 % (0.0-10.0); %Neutrophils 40.9 % (42.0-75.0); Hemoglobin 12.3 g/dL (12.0-16.0); Mean Corpuscular HGB CONC 30.5 g/dL (32.0-36.0); Mean Corpuscular Volume 88.6 fL (78.0-98.0); Mean Platelet Volume 8.5 fL (7.4-10.4); Platelet Count 160 thou/uL (130-400); RBC Distribution Width 11.9 % (11.5-14.5); Red Blood Cell (RBC) Count 4.55 mill/uL (4.20-5.40); White Blood Cell (WBC) Count 3.8 thou/uL (4.8-10.8)
[2020-04-17 06:11] LABS: ALT (SGPT) 19 U/L (8-55); AST (SGOT) 18 U/L (5-34); Albumin 3.7 g/dL (3.4-4.8); Alkaline Phosphatase 69 U/L (40-110); Anion Gap 13 mmol/L (10-20); BUN (Urea Nitrogen) 10 mg/dL (9.8-20.1); Bilirubin, Total 0.3 mg/dL (0.2-1.2); Calc. Creatinine Clearance 0 mL/min (70-130); Carbon Dioxide 25 mmol/L (23-31); Chloride 105 mmol/L (98-107); Glucose 126 mg/dL (83-110); Potassium 3.5 mmol/L (3.5-5.1); Protein, Total 5.7 g/dL (5.8-8.1); Sodium 139 mmol/L (136-145)
[2020-04-17] MEDS ORDERED: Nitroglycerin 0.4 MG TAB 1 EACH ONE (06:13)
[2020-04-17] MEDS ORDERED: Ketorolac Tromethamine 30 MG/ML VIAL ONE (06:25)
[2020-04-17 09:22] LABS: Troponin I 0.018 ng/mL (< 0.028)
[2020-04-17] MEDS: Aspirin Chewable 81 MG TAB PO SCH (10:59)
[2020-04-17] MEDS: Lisinopril 10 MG TAB PO SCH (11:05)
[2020-04-17] MEDS: Amiodarone 200 MG TAB PO SCH ×2 (11:07→20:19)
[2020-04-17 12:27] LABS: Troponin I Less than 0.010 ng/mL (< 0.028)
[2020-04-17 16:40] VITALS: BMI 23.6
[2020-04-17] MEDS: Nitroglycerin 2% Ointment 1 INCH/1 GM Packet TOP SCH ×2 (17:46→23:40)
[2020-04-17] MEDS: Enoxaparin Sodium 60 MG/0.6 ML SYRINGE SC SCH (20:19)
[2020-04-17] MEDS ORDERED: Rosuvastatin 10 MG TAB PO SCH (21:00)
[2020-04-17] MEDS: Acetaminophen 325 MG TAB PO PRN (21:41)
[2020-04-17 22:27] LABS: SARS-CoV-2 PCR by NAA Not Detected (NotDetected)
[2020-04-18 05:29] LABS: #Lymphocytes 1.3 thou/uL (1.20-3.40); #Monocytes 0.4 thou/uL (0.11-0.59); #Neutrophils 1.9 thou/uL (1.40-6.50); %Basophils 0.2 % (0.0-1.0); %Eosinophils 0.6 % (0.0-10.0); %Lymphocytes 36.4 % (21.0-51.0); %Neutrophils 52.7 % (42.0-75.0); Hemoglobin 11.6 g/dL (12.0-16.0); Mean Corpuscular Hemoglobin 27.9 pg (27.0-31.0); Mean Corpuscular Volume 87.2 fL (78.0-98.0); Mean Platelet Volume 8.9 fL (7.4-10.4); Platelet Count 146 thou/uL (130-400); Red Blood Cell (RBC) Count 4.16 mill/uL (4.20-5.40); White Blood Cell (WBC) Count 3.6 thou/uL (4.8-10.8)
[2020-04-18 05:54] LABS: Anion Gap 10 mmol/L (10-20); BUN (Urea Nitrogen) 8 mg/dL (9.8-20.1); Calc. Creatinine Clearance 55 mL/min (70-130); Calcium 8.4 mg/dL (7.8-10.44); Carbon Dioxide 28 mmol/L (23-31); Cardiac Risk 2.3 (Less than 4.5); Chloride 107 mmol/L (98-107); Cholesterol 117 mg/dl (< 200 Desired); Glucose 88 mg/dL (83-110); HDL Cholesterol 51 mg/dL (>60 Neg Risk); LDL Cholesterol, Calculated 52 mg/dL; Potassium 4.3 mmol/L (3.5-5.1); Sodium 141 mmol/L (136-145); Triglycerides 69 mg/dL (Less than 150)
[2020-04-18] MEDS ORDERED: Levothyroxine Sodium 50 MCG TAB PO SCH (06:00)
[2020-04-18] MEDS: Nitroglycerin 2% Ointment 1 INCH/1 GM Packet TOP SCH ×2 (06:03→14:57)
[2020-04-18] MEDS ORDERED: Lorazepam 2 MG/ML VIAL SLOW IVP PRN (09:05)
[2020-04-18] MEDS ORDERED: Regadenoson 0.4 MG/5 ML SYRINGE ONE (11:36)
[2020-04-18 12:47] VITALS: TEMP 97.8
[2020-04-18] MEDS: Aspirin Chewable 81 MG TAB PO SCH (12:58)
[2020-04-18] MEDS: Acetaminophen 325 MG TAB PO PRN (12:58)
[2020-04-18] MEDS: Enoxaparin Sodium 60 MG/0.6 ML SYRINGE SC SCH (12:59)
[2020-04-18] MEDS: Amiodarone 200 MG TAB PO SCH (13:22)
[2020-04-18 13:27] VITALS: BP 106/54
[2020-04-18] MEDS: Lisinopril 10 MG TAB PO SCH (13:27)
== END 2020-04-18 14:40 | disposition home or self-care (01) ==
LOC: ERS 05:26 → ERHOLD 07:20 → 3SE 16:36
PROVIDERS: ADMIT Internal Medicine; ATTEND Family Medicine
DX: R07.89 Other chest pain (principal); M25.512 Pain in left shoulder; I48.0 Paroxysmal atrial fibrillation; I25.10 Atherosclerotic heart disease of native coronary artery without angina pectoris; I10 Essential (primary) hypertension; E78.5 Hyperlipidemia, unspecified; E03.9 Hypothyroidism, unspecified; I45.10 Unspecified right bundle-branch block; Z79.01 Long term (current) use of anticoagulants; Z79.82 Long term (current) use of aspirin; Z79.899 Other long term (current) drug therapy; Z88.8 Allergy status to other drugs, medicaments and biological substances; Z91.048 Other nonmedicinal substance allergy status; Z95.1 Presence of aortocoronary bypass graft; Z20.822 Contact with and (suspected) exposure to COVID-19
CPT/HCPCS: 71045; 78452; 80048; 80053; 80061; 84443; 84484 ×2; 85025 ×2; 93005; 93017; 94760; 96374; 99285; A9500; U0003; U0005; 36415; 87635; 96372; 96375; G0378; J1650; J1885; J2060; J2785